=== PATIENT | male | born 1950 | race Caucasian/White ===

== ENCOUNTER → 2022-01-27 10:55 | Outpatient (CLI) | payer MEDICARE, SELFPAY ==
[2022-01-27 19:43] LABS: Add Manual Diff / Slide Review NO; Basophils Absolute Auto 100 /uL (0-100); Basophils Percent Auto 0.7 % (0-2); Eosinophils Absolute Auto 300 /uL (0-450); Eosinophils Percent Auto 3.9 % (2-4); Hematocrit 42.5 % (41-53); Hemoglobin 14.6 g/dL (13.5-17.5); Lymphocytes Absolute Auto 1200 /uL (1100-4500); Lymphocytes Percent Auto 17.6 % (25-40); Mean Corpuscular HGB Conc 34.3 % (30-36); Mean Corpuscular Hemoglobin 33.8 PG (26-34); Mean Corpuscular Volume 98.5 fL (80-100); Monocytes Absolute Auto 700 /uL (0-900); Monocytes Percent Auto 10.7 % (3-14); Neutrophils Absolute Auto 4700 /uL (1500-7000); Neutrophils Percent Auto 67.1 % (50-75); Platelet Count 284 X10^3/uL (150-400); Red Blood Cell Count 4.32 X10^6/uL (4.5-5.9); Red Cell Distribution Width 13.2 % (11.6-14.8)
[2022-01-27 19:44] LABS: BUN Creatinine Ratio 28.6 (6-22); Blood Urea Nitrogen 22 mg/dL (9-20); Calcium 8.8 mg/dL (8.4-10.2); Carbon Dioxide 28 mmol/L (22-32); Chloride 104 mmol/L (98-107); Cholesterol 102 mg/dL (140-199); Estimated Glomerular Filt Rate > 60 mL/min (>60); Glucose 105 mg/dL (80-110); HDL Cholesterol 34 mg/dL (40-60); HEMOLYSIS < 15 (0-50); LDL Cholesterol Calculated 51 mg/dL (<100); Sodium 138 mmol/L (137-145); Triglycerides 86 mg/dL (35-150)
== END ==
PROVIDERS: PCP Family Medicine; Visit Provider Internal Medicine Cardiovascular Disease
DX: I10 Essential (primary) hypertension (principal); E78.5 Hyperlipidemia, unspecified
CPT/HCPCS: 80048; 80061; 85025

== ENCOUNTER → 2022-01-29 11:57 | Outpatient (CLI) | payer MEDICARE, SELFPAY ==
--- NOTE | 2022-01-29 12:00 | DI.ECHO.S_ITS ---
[place] [facility] +---------+ : : [address] : : : : [id number] : : : : Phone: [phone]+ Echocardiogram Report + + :Name: LESTER SHEPHERD Study Date: 01/29/2022 Height: 71 in : :[facility] ReadingLocation: Weight: 198 lb : : Gender: Male BSA: 2.1 m2 : :: 1950 Age: 71 yrs BP: 137/90 mmHg: :Reason For Study: TX-History : :Ordering Physician: JERARDO, : :NITO Performed By: Asif George : :Referring: NITO BAUTISTA : + + Interpretation Summary 1) Normal left ventricular size and thickness with low normal function (EF 50- 55%). 2) Basal to mid inferolateral wall are severely hypokinetic. 3) Normal right ventricular size and function. 4) No significant valvular abnormaltiies. 5) No prior Echo available for comparison. Procedure: A two-dimensional transthoracic echocardiogram with color flow and Doppler was performed. The study quality was technically adequate. There is no prior echocardiogram noted for this patient. The patient was in normal sinus rhythm during the exam. Left Ventricle: The left ventricle is normal in size and wall thickness. Left ventricular systolic function is low normal. The ejection fraction is estimated to be 50-55%. There is basal posterolateral wall severe hypokinesis. There is proximal mid posteriolateral wall severe hypokinesis. Diastolic function could not be accurately assessed due to unobtainable data. Right Ventricle: The right ventricle is normal in size and function. Atria: Both atria are normal in size. The interatrial septum grossly appears intact with no obvious evidence for an atrial septal defect. Mitral Valve: The mitral valve is normal in structure and function. There is mild mitral regurgitation. Aortic Valve: There is mild aortic valve sclerosis. There is no aortic valve stenosis. No aortic regurgitation is present. Tricuspid Valve: The tricuspid valve is normal in structure and function. There is a trace or physiologic amount of tricuspid regurgitation. Pulmonary artery pressures cannot be estimated because of the lack of a measurable TR jet velocity. Pulmonic Valve: The pulmonic valve is normal in structure and function. There is no pulmonic valvular regurgitation. Great Vessels: The aortic root is normal size. The ascending aorta is at the upper limits of normal in size. The IVC is of normal diameter and collapses greater than 50% with a sniff. This suggests a low right atrial pressure of 3 mm Hg. Pericardium/ Pleura There is no pericardial effusion. There is no pleural effusion. MMode/2D Measurements & Calculations LVIDd: 5.3 cm LVOT diam: 2.3 cm LVIDs: 4.3 cm Ao root diam: 3.3 cm FS: 18.9 % asc Aorta Diam: 3.7 cm IVSd: 1.1 cm LVPWd: 1.0 cm LV yee. diameter/BSA (cm/m^2): 2.5 LV sys. diameter/BSA (cm/m^2): 2.0 LA dimension: 3.2 cm RA long axis: 4.6 cm LA A2 area: 19.6 cm2 LA A4 area: 20.9 cm2 LA length (vol): 5.6 cm LA vol: 61.9 ml LA vol index: 29.5 ml/m2 LVLs ap4: 7.5 cm LVLd ap2: 8.7 cm TAPSE_phl: 2.5 cm Doppler Measurements & Calculations Ao V2 max: 121.0 cm/sec LVOT Max Bismark: 111.0 cm/sec Ao V2 mean: 87.8 cm/sec LV V1 max P.9 mmHg Ao max P.0 mmHg LV V1 VTI: 26.3 cm Ao mean P.0 mmHg GELN(I,D): 3.8 cm2 Ao V2 VTI: 28.4 cm GLEN(V,D): 3.8 cm2 sev ratio: 0.93 GLEN indexed to BSA (cm^2/m^2): 1.8 MV E max bismark: 95.1 cm/sec SV(LVOT): 109.3 ml MV A max bismark: 88.3 cm/sec MV E/A: 1.1 Med Peak E' Bismark: 6.1 cm/sec E/E' med: 15.6 Lat Peak E' Bismark: 11.0 cm/sec E/E' lat: 8.6 E/e' average: 12.1 MV dec time: 0.24 sec AV VR_phl: 0.92 MV P1/2t-pr_phl: 70.0 msec GLEN(VTI)/BSA_phl: 1.8 Reading Physician:10:05 AM
== END ==
PROVIDERS: PCP Family Medicine; Referring Provider Internal Medicine Cardiovascular Disease; Visit Provider Internal Medicine Cardiovascular Disease
DX: I08.0 Rheumatic disorders of both mitral and aortic valves (principal); I25.10 Atherosclerotic heart disease of native coronary artery without angina pectoris; I25.2 Old myocardial infarction
CPT/HCPCS: 93306

== ENCOUNTER → 2022-03-17 10:57 | Outpatient (CLI) | payer MEDICARE, SELFPAY ==
--- NOTE | 2022-03-17 | DI.NM.S_ITS ---
PROCEDURE: NM KAYLIE PERF SPECT REST & STR Rest and exercise myocardial perfusion SPECT with gated imaging and ejection fraction RADIOPHARMACEUTICAL: 27.4 mCi Tc-99m sestamibi IV at rest and 27.1 mCi Tc-99m sestamibi IV at peak exercise. A twoday-protocol was performed. INDICATIONS: Atherosclerotic heart disease TECHNIQUE: Radiopharmaceutical was injected at peak stress test, and also at rest. SPECT images were obtained. SPECT myocardial perfusion images were displayed in short axis, horizontal long axis, and vertical long axis views. Gated images were reviewed using MPSTORQUANT software. COMPARISON: None. CARDIAC STRESS: A standard Yusef treadmill exercise tolerance test was performed by the patient under the supervision of an attending staff. The patient exercised for 7 minutes and 3 seconds; functional aerobic impairment (GORGE) is -6%. Hemodynamic data: There is normal blood pressure and heart rate response to exercise stress. Patient achieved 86% of maximum predicted heart rate at peak exercise. Symptoms: Patient had 3/10 chest pain with exercise. EKG: Mild horizontal ST depressions in the anterior leads with exercise; frequent PVCs during recovery. FINDINGS: Raw data: There is good myocardial labeling by radiotracer. No significant motion artifacts. Left ventricle function: Gated images demonstrate normal left ventricle wall thickening. No segmental wall motion abnormality. No transient ischemic dilation; TID is 0.96 (normal less than 1.3). The left ventricle resting end-diastolic volume is 153 mL. Left ventricle stress ejection fraction is 63%; normal values are above 45%. Myocardial perfusion: There is severe predominantly fixed inferior wall defect that is suggestive of prior infarction with mild main-infarct ischemia in the inferoapex. IMPRESSION: Abnormal treadmill nuclear stress test consistent with prior infarction and small amount of ischemia. 1) Severe predominantly fixed inferior wall defect that is suggestive of prior infarction with mild main-infarct ischemia in the infero-apex. 2) Enlarged left ventricle (LVEDV 153cc) with normal wall motion, and normal systolic function (EF post stress 63%). 3) Mild horizontal ST depressions in the anterior leads with exercise. 4) 3/10 chest pain with exercise. 5) Slightly above average exercise tolerance (8 METs, GORGE -6%). Target heart rate achieved. Appropriate BP response to exercise. 6) No prior nuclear stress test available for comparison. Dictated by: Gabrielle Bautista MD on 03/18/2022 at 13:55 Approved by: Gabrielle Bautista MD on 03/18/2022 at 14:01
[2022-03-17 12:39] LABS: COVID19 -Nasal RAPID Negative (Negative)
== END ==
PROVIDERS: PCP Family Medicine; Referring Provider Internal Medicine Cardiovascular Disease; Visit Provider Internal Medicine Cardiovascular Disease
DX: I25.118 Atherosclerotic heart disease of native coronary artery with other forms of angina pectoris (principal); R94.39 Abnormal result of other cardiovascular function study; Z20.822 Contact with and (suspected) exposure to COVID-19
CPT/HCPCS: 78452; 87635; 93017; A9502

== ENCOUNTER → 2023-10-14 09:51 | Outpatient (CLI) | payer MEDICARE, SELFPAY ==
[2023-10-14 19:53] LABS: Hematocrit 46.9 % (41-53); Mean Corpuscular HGB Conc 34.1 % (30-36); Mean Corpuscular Hemoglobin 34.6 PG (26-34); Mean Corpuscular Volume 101.5 fL (80-100); Platelet Count 333 X10^3/uL (150-400); Red Blood Cell Count 4.62 X10^6/uL (4.5-5.9); Red Cell Distribution Width 13.7 % (11.6-14.8)
[2023-10-14 20:20] LABS: Hemoglobin A1C% w Est Avg Glu 5.8 % (4.0-6.0)
[2023-10-14 20:27] LABS: BUN Creatinine Ratio 26.7 (6-22); Blood Urea Nitrogen 20 mg/dL (9-20); Calcium 9.2 mg/dL (8.4-10.2); Carbon Dioxide 26 mmol/L (22-32); Chloride 109 mmol/L (98-107); Cholesterol 113 mg/dL (140-199); Estimated Glomerular Filt Rate > 60 mL/min (>60); Glucose 103 mg/dL (80-110); HDL Cholesterol 36 mg/dL (40-60); HEMOLYSIS 17 (0-50); LDL Cholesterol Calculated 57 mg/dL (<100); Potassium 4.3 mmol/L (3.4-5.1); Sodium 143 mmol/L (137-145); Triglycerides 102 mg/dL (35-150)
[2023-10-14 20:48] LABS: Neutrophils Absolute Manual 5940 /uL (3000-5900); Total Cells Counted 100
[2023-10-14 20:49] LABS: RBC Morphology Normal Morphology
[2023-10-14 20:57] LABS: Prostate Specific Antigen Scrn 1.53 ng/mL (0.1-4.0)
== END ==
PROVIDERS: PCP Family Medicine; Visit Provider Family Medicine
DX: Z12.5 Encounter for screening for malignant neoplasm of prostate (principal); Z13.1 Encounter for screening for diabetes mellitus; N52.9 Male erectile dysfunction, unspecified; I25.10 Atherosclerotic heart disease of native coronary artery without angina pectoris; E78.5 Hyperlipidemia, unspecified; H35.62 Retinal hemorrhage, left eye; I10 Essential (primary) hypertension; I25.2 Old myocardial infarction; Z95.1 Presence of aortocoronary bypass graft
CPT/HCPCS: 80048; 80061; 83036; 85025; G0103

== ENCOUNTER → 2024-01-11 13:09 | Outpatient (CLI) | payer MEDICARE, SELFPAY | PROVIDERS: PCP Family Medicine; Visit Provider Family Medicine | DX: R97.20 Elevated prostate specific antigen [PSA] (principal) | CPT/HCPCS: 84153; 84154 ==

== ENCOUNTER → 2024-11-08 09:53 | Outpatient (CLI) | payer MEDICARE, SELFPAY ==
[2024-11-08 19:19] LABS: Add Manual Diff / Slide Review NO; Basophils Absolute Auto 0 /uL (0-100); Basophils Percent Auto 0.4 % (0-2); Eosinophils Absolute Auto 300 /uL (0-450); Eosinophils Percent Auto 3.9 % (2-4); Hematocrit 48.3 % (41-53); Lymphocytes Absolute Auto 1600 /uL (1100-4500); Lymphocytes Percent Auto 19.1 % (25-40); Mean Corpuscular HGB Conc 33.1 % (30-36); Mean Corpuscular Hemoglobin 34.2 PG (26-34); Mean Corpuscular Volume 103.1 fL (80-100); Monocytes Absolute Auto 900 /uL (0-900); Monocytes Percent Auto 10.9 % (3-14); Neutrophils Absolute Auto 5600 /uL (1500-7000); Neutrophils Percent Auto 65.7 % (50-75); Platelet Count 294 X10^3/uL (150-400); Red Blood Cell Count 4.69 X10^6/uL (4.5-5.9); Red Cell Distribution Width 14.3 % (11.6-14.8); White Blood Cell Count 8.5 X10^3/uL (4.5-11.0)
[2024-11-08 19:43] LABS: BUN Creatinine Ratio 20.9 (6-22); Blood Urea Nitrogen 18 mg/dL (9-20); Calcium 9.5 mg/dL (8.4-10.2); Carbon Dioxide 28 mmol/L (22-32); Chloride 106 mmol/L (98-107); Cholesterol 127 mg/dL (140-199); Estimated Glomerular Filt Rate > 60 mL/min (>60); Glucose 103 mg/dL (70-99); HDL Cholesterol 40 mg/dL (40-60); HEMOLYSIS < 15 (0-50); LDL Cholesterol Calculated 67 mg/dL (<100); Potassium 4.8 mmol/L (3.4-5.1); Sodium 140 mmol/L (137-145); Triglycerides 101 mg/dL (35-150)
[2024-11-08 20:14] LABS: Prostate Specific Antigen 0.717 ng/mL (0.10-4.00)
== END ==
PROVIDERS: PCP Family Medicine; Visit Provider Family Medicine
DX: I25.10 Atherosclerotic heart disease of native coronary artery without angina pectoris (principal); N40.1 Benign prostatic hyperplasia with lower urinary tract symptoms; R35.1 Nocturia; I25.2 Old myocardial infarction; R97.20 Elevated prostate specific antigen [PSA]; E78.5 Hyperlipidemia, unspecified; I10 Essential (primary) hypertension
CPT/HCPCS: 80048; 80061; 84153; 85025

== ENCOUNTER → 2024-12-19 14:20 | Outpatient (CLI) | payer MEDICARE, SELFPAY ==
[2024-12-19 20:16] LABS: Vitamin B12 475 pg/mL (239-931)
== END ==
PROVIDERS: PCP Family Medicine; Visit Provider Family Medicine
DX: R71.8 Other abnormality of red blood cells (principal)
CPT/HCPCS: 82607